=== PATIENT | male | born 2000 | race Caucasian/White ===

== ENCOUNTER 2023-04-02 13:59 | Emergency (ER) | payer OTHER, SELFPAY ==
[2023-04-02 14:29] VITALS: BP 124/65; PULSE 73; RESP 16; TEMP 37.6; O2SAT 99
--- NOTE | 2023-04-02 14:50 | ED.URI ---
HPI - URI/Sore Throat General Chief Complaint: Upper Respiratory Infection Stated Complaint: duglas,rash,low grade fever, strep Time Seen by Provider: 04/02/23 14:51 Source: patient Mode of arrival: ambulatory Limitations: no limitations History of Present Illness HPI Narrative: 22-year-old male presents with complaint of nasal congestion, postnasal drainage, cough, fatigue, body aches, low-grade fever for 4 days. Reports had sore throat for 1 day and then resolved. Denies nausea vomiting diarrhea. Taking [id number] cold and sinus medication to treat symptoms. All systems reviewed and negative except as noted above. Related Data Home Medications Medication Instructions Recorded Confirmed No Home Medications 04/02/23 04/02/23 Allergies Allergy/AdvReac Type Severity Reaction Status Date / Time No Known Allergies Allergy Verified 04/02/23 14:49 Review of Systems Review of Systems: CONSTITUTIONAL: reports fever, chills, fatigue. EYES: Denies visual changes, redness, or discharge. ENT: Reports rhinorrhea, congestion, sore throat. Denies otalgia. CARDIOVASCULAR: Denies chest pain, palpitations, or edema. RESPIRATORY: reports cough. Denies dyspnea. GASTROINTESTINAL: Denies abdominal pain, nausea, vomiting, or diarrhea. GENITOURINARY: Denies dysuria or hematuria. SKIN: Denies rash or itching. MUSCULOSKELETAL: Denies back pain, joint pain . Report myalgia. NEUROLOGIC: reports headache. Denies numbness, or weakness. PSYCHIATRIC: Denies anxiety or depression. All other systems reviewed are negative, except as documented in HPI. PMFSH Comments At time of signature, agree with nursing past medical, surgical, social and family history. There is no relevant family history pertinent to the presenting complaint. Exam Narrative: GENERAL: This is a well-nourished, well-developed patient, in no apparent distress. HEAD: normocephalic, atraumatic. EYES: PERRL. Sclera clear/white. Vision is grossly intact. EARS: External ears normal, auditory canals clear and without drainage, TMs normal without perforation. Hearing grossly intact. NOSE: External nose normal with clear nasal drainage mild congestion. THROAT: Mucous membranes moist, Mild erythema with postnasal drainage. No swelling or exudates. NECK: Neck supple, non-tender without lymphadenopathy, masses or thyromegaly. CARDIOVASCULAR: Regular rate and rhythm without murmurs, gallops, or rubs. RESPIRATORY: Clear to auscultation. Breath sounds equal bilaterally. No wheezes, rales, or rhonchi. SKIN: warm, Dry, intact with no suspicious lesions or rash, good texture and turgor. NEURO: awake, alert, and oriented to person, place and time. There were no obvious focal neurologic abnormalities. EXTREMITIES: No joint tenderness, effusion, or edema noted. Course Course Level of Care: Express Care Visit Vital Signs Vital signs: Vital Signs Temperature 37.6 C H 04/02/23 14:29 Pulse Rate 73 04/02/23 14:29 Respiratory Rate 16 04/02/23 14:29 Blood Pressure 124/65 04/02/23 14:29 Pulse Oximetry 99 04/02/23 14:29 Oxygen Delivery Room Air 04/02/23 14:29 Temperature 37.6 C H 04/02/23 14:29 Pulse Rate 73 04/02/23 14:29 Respiratory Rate 16 04/02/23 14:29 Blood Pressure 124/65 04/02/23 14:29 Pulse Oximetry 99 04/02/23 14:29 Oxygen Delivery Room Air 04/02/23 14:29 Reviewed MDM - URI/Sore Throat MDM Narrative Medical decision making narrative: Patient is aware of diagnosis, understands and agrees to treatment plan. Anticipatory guidance given. Patient agrees to follow-up as directed and is aware of reasons to seek care at the emergency department. Portions of this record may have been created with voice recognition software positive influenza B. recommend continuing [id number] medications to treat symptoms. Out of therapeutic window for Tamiflu. Patient nontoxic. Differential Diagnosis Differen
== END 2023-04-02 15:24 | disposition home or self-care (01) ==
PROVIDERS: Emergency Provider Nurse Practitioner Family
DX: J10.1 Influenza due to other identified influenza virus with other respiratory manifestations (principal); Z20.822 Contact with and (suspected) exposure to COVID-19
CPT/HCPCS: 87081; 87426; 87804; 87880; 99203; G0463